=== PATIENT | female | born 1975 | race Caucasian/White ===

== ENCOUNTER 2024-02-25 19:08 | Inpatient (IN) | payer OTHER ==
[2024-02-25 14:01] VITALS: BMI 19.5
[2024-02-25] MEDS ORDERED: BENZONATATE 200 MG CAPSULE PO PRN (22:33)
[2024-02-25] MEDS ORDERED: MAG HYDROX/AL HYDROX/SIMETH 30 ML UNIT-DOSE CUP PO PRN (22:33)
[2024-02-25] MEDS ORDERED: IBUPROFEN 400 MG TABLET (FP) PO PRN (22:33)
[2024-02-25] MEDS ORDERED: guaiFENesin 600 MG TABLET.ER (FP) PO PRN (22:33)
[2024-02-25] MEDS ORDERED: hydrOXYzine PAMOATE 25 MG CAPSULE (FP) PO PRN (22:33)
[2024-02-25] MEDS ORDERED: BISMUTH SUBSALICYLATE 524 MG/30 ML PO PRN (22:33)
[2024-02-25] MEDS ORDERED: ONDANSETRON *ODT* 4 MG TABLET SL PRN (22:33)
[2024-02-25] MEDS ORDERED: ACETAMINOPHEN 325 MG TABLET (FP) PO PRN (22:33)
[2024-02-25] MEDS ORDERED: LOPERAMIDE HCL 2 MG CAPSULE PO PRN (22:33)
[2024-02-25] MEDS ORDERED: POLYETHYLENE GLYCOL (HEALTHYLAX) 3350 17 GM PACKET PO PRN (22:33)
[2024-02-25] MEDS ORDERED: BENZOCAINE/MENTHOL (CHLORASEPTIC ) LOZENGE MM PRN (22:33)
[2024-02-25] MEDS ORDERED: IBUPROFEN 600 MG TABLET (FP) PO PRN (22:33)
[2024-02-25] MEDS ORDERED: NICOTINE POLACRILEX 2 MG GUM BUC PRN (22:33)
[2024-02-25] MEDS ORDERED: DICYCLOMINE HCL 10 MG CAPSULE PO PRN (22:33)
[2024-02-25] MEDS ORDERED: MAGNESIUM HYDROX 2400MG/30ML ORAL SUSPENSION 30 ML CUP PO PRN (22:33)
[2024-02-25] MEDS ORDERED: NALOXONE (NARCAN) HCL 4 MG/0.1 ML SPRAY NS PRN (22:33)
[2024-02-26] MEDS ORDERED: methaDONE HCL 10 MG TABLET PO SCH (08:45)
[2024-02-26] MEDS ORDERED: LORazepam 1 MG TABLET PO PRN (09:02)
[2024-02-26] MEDS: PRENATAL VITAMINS W/ FOLIC ACID TABLET (FP) PO SCH (10:25)
[2024-02-26] MEDS: NICOTINE 14 MG/24 HOURS TOPICAL PATCH TD SCH (10:25)
[2024-02-26 11:17] LABS: HEMATOCRIT 36.6 % (32.4-45.2); HEMOGLOBIN 11.9 GM/dL (10.7-15.3); MCH 27.3 pg (25.7-33.7); MCHC 32.4 g/dl (32.0-36.0); MEAN CELL VOLUME 84.4 fl (80-96); MEAN PLT VOLUME 8.7 fl (7.5-11.1); PLATELET COUNT 137 10^3/uL (134-434); RBC 4.34 M/mm3 (3.60-5.2); RDW 18.1 % (11.6-15.6); WHITE BLOOD COUNT 4.3 K/mm3 (4.0-10.0)
[2024-02-26] MEDS: methaDONE HCL 40 MG DISPERSABLE TABLET PO ONE (11:22)
[2024-02-26 11:30] LABS: CHLORIDE 109 mmol/L (98-107); POTASSIUM 3.8 mmol/L (3.5-5.1); SODIUM 141 mmol/L (136-145)
[2024-02-26 11:40] LABS: CALCIUM 9.3 mg/dL (8.5-10.1)
[2024-02-26 11:41] LABS: ALBUMIN 2.9 g/dl (3.4-5.0); ANION GAP 5 mmol/L (4-13); BLOOD UREA NITROGEN 9.4 mg/dL (7-18); CO2 27 mmol/L (21-32); GLUCOSE,RANDOM 140 mg/dL (74-106)
[2024-02-26 11:44] LABS: CREATININE 0.8 mg/dL (0.55-1.3); SGOT/AST 35 U/L (15-37); SGPT/ALT 26 U/L (13-61)
[2024-02-26 11:45] LABS: BILIRUBIN,TOTAL 0.4 mg/dL (0.2-1)
[2024-02-26 11:46] LABS: TOT PROT 7.3 g/dl (6.4-8.2)
[2024-02-26 11:47] LABS: ALK PHOS 139 U/L (45-117)
[2024-02-26] MEDS: LORazepam 2 MG TABLET PO SCH (17:30)
[2024-02-26] MEDS: THIAMINE 100 MG TABLET PO SCH (22:43)
[2024-02-26] MEDS: METHOCARBAMOL 500 MG TABLET PO PRN (22:43)
[2024-02-26] MEDS: MELATONIN 5 MG TABLETS PO SCH (22:43)
[2024-02-27] MEDS: methaDONE HCL 40 MG DISPERSABLE TABLET PO SCH (05:20)
[2024-02-27 14:00] VITALS: BP 132/67; PULSE 89; RESP 16; TEMP 99
[2024-02-27] MEDS: NALOXONE (NYS OPIOID OVERDOSE PROGRAM) 4 MG/0.1 ML SPRAY NS PRN (15:54)
[2024-02-28] MEDS ORDERED: LORazepam 1 MG TABLET PO SCH (05:00)
[2024-02-29] MEDS ORDERED: LORazepam 0.5 MG TABLET PO PRN
[2024-02-29] MEDS ORDERED: LORazepam 0.5 MG TABLET PO SCH (05:00)
[2024-03-01] MEDS ORDERED: LORazepam 0.5 MG TABLET PO ONE (05:00)
== END 2024-02-27 04:08 | disposition left against medical advice (07) | DRG 770 ==
LOC: YASAS 19:08 → Y3N 22:53
PROVIDERS: ADMIT Allergy & Immunology; ATTEND Surgery
PROC: HZ2ZZZZ Detoxification Services for Substance Abuse Treatment (ICD-10-PCS; principal; 2024-02-25)
DX: F10.230 Alcohol dependence with withdrawal, uncomplicated (principal); F11.20 Opioid dependence, uncomplicated; F14.20 Cocaine dependence, uncomplicated; F17.210 Nicotine dependence, cigarettes, uncomplicated; F20.9 Schizophrenia, unspecified; F31.9 Bipolar disorder, unspecified; F41.9 Anxiety disorder, unspecified; Z21 Asymptomatic human immunodeficiency virus [HIV] infection status; K74.60 Unspecified cirrhosis of liver; R76.8 Other specified abnormal immunological findings in serum; Z86.19 Personal history of other infectious and parasitic diseases; S09.90XA Unspecified injury of head, initial encounter; W19.XXXA Unspecified fall, initial encounter; Y92.231 Patient bathroom in hospital as the place of occurrence of the external cause
CPT/HCPCS: 36415; 70450-TC; 72125-TC; 80053; 80305; 80307; 81025; 85027; 86593; 86780; 93005; 93010; 99281-25